=== PATIENT | male | born 1940 | race African-American/Black ===

== ENCOUNTER 2021-12-02 19:37 | Inpatient (IN) | payer MEDICARE, MEDICAID ==
[~2021-12-02] VITALS: Ht 172.7 cm; Wt 95.7 kg
--- NOTE | 2021-12-02 19:46 | NUR ---
JLUIS FROM SNF C/O NAUSEA AND VOMITTING X1DAY. TESTED POSITIVE FOR COVID 19. ON O2 NC 2L VIA N/C . PT AWAKE A/OX2. SAFETY MEASURES IN PLACE. CONNECTED PT TO POX AND MONITOR.
--- NOTE | 2021-12-02 20:15 | NUR ---
LAC #18G S/L BLOOD COLLECTED AND SENT TO LAB
--- NOTE | 2021-12-02 20:16 | NUR ---
INDUSTRIAL MAINTENANCE TECHNICIAN AT PT'S BEDSIDE
[2021-12-02] MEDS ORDERED: ONDANSETRON HCL/PF 4 MG/2 ML VIAL ONE ×2 (20:17→22:03)
--- NOTE | 2021-12-02 20:25 | NUR ---
COVID ANTIGEN SWAB COLLECTED AND SENT TO LAB
[2021-12-02] MEDS: ONDANSETRON HCL/PF 4 MG/2 ML VIAL IVP ONE ×2 (20:26→20:27)
[2021-12-02] MEDS ORDERED: IV NS 0.9% 1,000 ML BAG IV ONE (20:30)
[2021-12-02 20:52] LABS: BASOPHILS % (AUTO) 0.2 % (0.0-2.0); HEMATOCRIT 43 % (39-51); HEMOGLOBIN 14.7 g/dL (13.5-17.5); LYMPHOCYTES # (AUTO) 1.6 K/uL (0.8-4.8); LYMPHOCYTES % (AUTO) 19.9 % (20.0-44.0); MEAN CORPUSCULAR HGB CONC 34 g/dl (31.0-36.0); MEAN CORPUSCULAR VOLUME 83 fL (80-96); MONOCYTES # (AUTO) 1.3 K/uL (0.1-1.30); MONOCYTES % (AUTO) 16.9 % (2.0-12.0); PLATELET COUNT (AUTO) 283 K/uL (150-450); RED BLOOD CELL COUNT(AUTO) 5.19 MIL/uL (4.5-6.0); WHITE BLOOD COUNT (AUTO) 7.9 K/uL (4.3-11.0)
[2021-12-02 20:58] LABS: CALCIUM, SERUM 9.4 mg/dL (8.5-10.1); CHLORIDE 85 mmol/L (98-107); CREATININE 2.4 mg/dL (0.6-1.3); GLUCOSE 153 mg/dL (74-106); POTASSIUM 3.8 mmol/L (3.5-5.1); SODIUM SERUM 129 mmol/L (136-145); UREA NITROGEN, BLOOD 67 mg/dL (7-18)
[2021-12-02 21:04] LABS: ALANINE AMINOTRANSFERASE 21 U/L (12-78); ALBUMIN 3.8 g/dL (3.4-5.0); ALKALINE PHOSPHATASE 67 U/L (46-116); ASPARTATE AMINOTRANSFERASE 22 U/L (15-37); BILIRUBIN,DIRECT 0.1 mg/dL (0.0-0.2); BILIRUBIN,TOTAL 0.4 mg/dL (0.2-1.0); TOTAL PROTEIN, SERUM 7.8 g/dL (6.4-8.2)
[2021-12-02 21:05] LABS: CARBON DIOXIDE 40 mmol/L (21-32)
--- NOTE | 2021-12-02 21:20 | NUR ---
COVID PCR SWAB COLLECTED AND SENT TO LAB
[2021-12-02 21:23] LABS: LYMPHOCYTES % (MANUAL) 20 % (16-48); MONOCYTES % (MANUAL) 15 % (0-11.0); NEUTROPHILS % (MANUAL) 65 (42-76)
[2021-12-02] MEDS ORDERED: HYDR-4076 PO (21:37)
[2021-12-02] MEDS ORDERED: ENAL20TA18 PO (21:37)
[2021-12-02] MEDS ORDERED: TAMS-12 PO (21:37)
[2021-12-02] MEDS ORDERED: OLAN10TA3 PO (21:37)
[2021-12-02] MEDS ORDERED: BIMA2.5D5 EACHEYE (21:37)
[2021-12-02] MEDS ORDERED: METF500S7 PO (21:37)
[2021-12-02] MEDS ORDERED: BRIM5DRO EACHEYE (21:37)
[2021-12-02] MEDS ORDERED: NIFE-34 PO (21:37)
[2021-12-02] MEDS ORDERED: FLUT16SP (21:37)
[2021-12-02] MEDS ORDERED: FINA5TAB11 PO (21:37)
[2021-12-02] MEDS ORDERED: LEVE250T2 PO (21:37)
[2021-12-02] MEDS ORDERED: MULT-447 PO (21:37)
[2021-12-02] MEDS ORDERED: AMAN100T PO (21:37)
[2021-12-02] MEDS ORDERED: ATOR10TA PO (21:37)
[2021-12-02] MEDS ORDERED: CARV25TA2 PO (21:37)
[2021-12-02] MEDS ORDERED: DOCU100C36 PO (21:37)
[2021-12-02] MEDS ORDERED: ONDANSETRON HCL/PF - ER 4 MG/2 ML VIAL IV ONE (22:00)
[2021-12-02] MEDS ORDERED: MISCELLANEOUS MED 1 EA EA XX ONE (22:00)
[2021-12-02] MEDS ORDERED: ONDANSETRON HCL/PF 4 MG/2 ML VIAL IVP ONE (22:00)
--- NOTE | 2021-12-02 22:12 | NUR ---
PT NOTED WITH EMESISX1. ADMINISTERED ZOFRAN 4MG IVP ORDERED FROM MD. WILL REASSESS PT FOR N/V IN 30 MINUTES
[2021-12-02] MEDS ORDERED: METOCLOPRAMIDE HCL 15 MG in IV NS 0.9% 50 ML IV PRN (23:00)
[2021-12-02] MEDS ORDERED: IV D5/ 0.9% NACL 1,000 ML IV ONE (23:00)
[2021-12-02] MEDS ORDERED: MAG HYDROX/AL HYDROX/SIMETH 30 ML UDC PO PRN (23:00)
[2021-12-02] MEDS ORDERED: ZOLPIDEM TARTRATE 5 MG TABLET PO PRN (23:00)
[2021-12-02] MEDS ORDERED: Z GUARD REMEDY 4 OZ OINT TP PRN (23:00)
[2021-12-02] MEDS ORDERED: MAGNESIUM HYDROXIDE 30 ML UDC PO PRN (23:00)
[2021-12-02] MEDS ORDERED: ACETAMINOPHEN 325 MG TABLET PO PRN (23:00)
--- NOTE | 2021-12-02 23:28 | NUR ---
bed 107
--- NOTE | 2021-12-02 23:40 | NUR ---
REPORT GIVEN TO DORIAN PETIT RN FOR ALEX
--- NOTE | 2021-12-02 23:47 | NUR ---
PT NOTED WITH EMESISX1. ADMINISTERED ZOFRAN 4MG IVP ORDERED FROM MD. WILL REASSESS PT FOR N/V IN 30 MINUTES
--- NOTE | 2021-12-02 23:57 | NUR ---
PT TRANSFERRING TO [facility]IA [facility] PROTOCOL. ALL BELONGINGS WITH PT. LAC #18G S/L INTACT. ON O2 4LPM VIA N/C. VSS.
--- NOTE | 2021-12-03 | NUR ---
RN NOTES; PT RECEIVED FROM ER IN RM 107 AAOX3 ABLE TO VERBALIZE NEEDS.ON O2 @ 4L VIA NC SHAHBAZ WELL.NO SIGN SOB/DISTRESS NOTED.NO COMPLAINE OF PAIN/DISCOMFORT AT THIS TIME.IV ACCESS ON LAC 18G PATENT AND INTACT.PT WAS REORIENT IN THE RM AND VERBALIZE UNDERSTANDING.SAFETY MEASURED INPLACE.BED LOCKED AND LOW POSITION.CALL LIGHT WITHIN REACH.WILL CONTINUE TO MONITOR.
[2021-12-03] MEDS: ONDANSETRON HCL/PF 4 MG/2 ML VIAL IVP PRN ×2 (03:19→09:52)
--- NOTE | 2021-12-03 06:24 | NUR ---
RN CLOSING NOTES; PT IN BED SLEEPING BUT EASY TO AROUSED.AOX3 ABLE TO VERBALIZE NEEDS.ON O2 @ 4L VIA NC SHAHBAZ WELL.NO SIGN SOB/DISTRESS NOTED.NO COMPLAINE OF PAIN/DISCOMFORT DURING SHIFT.DUE MEDS GIVEN ORDERED.ALL NEEDS ATTENDED..IV ACCESS ON LAC 18G PATENT AND INTACT RUNNING D5NS @100CC/HR SHAHBAZ WELL.SAFETY MEASURED INPLACE.BED LOCKED AND LOW POSITION.CALL LIGHT WITHIN REACH.WILL ENDORSED TO NEXT SHIT.
--- NOTE | 2021-12-03 06:25 | NUR ---
RN NOTES; PT DVT SCORE WAS 3.I TEXTED ONIEL LAWSON S.WITH A NEW ORDERED HEPARIN 5000 SQ Q12HR .
[2021-12-03] MEDS ORDERED: METOCLOPRAMIDE HCL 10 MG/2 ML VIAL IV PRN (06:30)
[2021-12-03 06:38] LABS: BASOPHILS % (AUTO) 0.2 % (0.0-2.0); EOSINOPHILS % (AUTO) 0.1 % (0.0-6.0); HEMATOCRIT 42 % (39-51); LYMPHOCYTES # (AUTO) 1.1 K/uL (0.8-4.8); LYMPHOCYTES % (AUTO) 19.9 % (20.0-44.0); MEAN CORPUSCULAR HGB CONC 33 g/dl (31.0-36.0); MEAN CORPUSCULAR VOLUME 83 fL (80-96); MONOCYTES # (AUTO) 1.1 K/uL (0.1-1.30); MONOCYTES % (AUTO) 19.3 % (2.0-12.0); NEUTROPHILS # (AUTO) 3.5 K/uL (1.8-8.9); NEUTROPHILS % (AUTO) 60.5 % (43.0-81.0); PLATELET COUNT (AUTO) 246 K/uL (150-450); RED BLOOD CELL COUNT(AUTO) 5.08 MIL/uL (4.5-6.0); WHITE BLOOD COUNT (AUTO) 5.8 K/uL (4.3-11.0)
[2021-12-03 07:10] LABS: CALCIUM, SERUM 8.7 mg/dL (8.5-10.1); CARBON DIOXIDE 38 mmol/L (21-32); CHLORIDE 86 mmol/L (98-107); CREATININE 2.3 mg/dL (0.6-1.3); GLUCOSE 175 mg/dL (74-106); MAGNESIUM 2.3 mg/dL (1.8-2.4); PHOSPHORUS 6.4 mg/dL (2.5-4.9); POTASSIUM 3.3 mmol/L (3.5-5.1); SODIUM SERUM 131 mmol/L (136-145); UREA NITROGEN, BLOOD 73 mg/dL (7-18)
--- NOTE | 2021-12-03 07:30 | NUR ---
OPENING NOTES: RECEIVED PATIENT IN BED, AWAKE, ALERT AND ORIENTED X 2. BREATHING EVEN AND UNLABORED. ON OXYGEN AT 4L/MIN VIA NC SATING 95%. HAS IV ACCESS ON LEFT AC # 18 RUNNING WITH D5NS AT 100 ML/HR. PATIENT REMAINS ON NPO UNTIL FURTHER ORDERS FROM MD. HOB KEPT ELEVATED. BED LOCKED AND IN LOWEST POSITION. PATIENT NOTED TO HAVE MINIMAL GREEN EMESIS ON HIS BED. WILL GIVE PRN MED ORDERED FOR N/V. KEPT PATIENT CLEAN AND DRY AND WILL MONITOR FOR FURTHER EPISODES OF VOMITING AND WILL NOTIFY MD NEEDED. WILL IMPLEMENT SAFETY MEASURES THROUGHOUT SHIFT.
--- NOTE | 2021-12-03 07:35 | NUR ---
MEDICATION ZOFRAN NOT SCHEDULED YET AND WILL GIVE MED ORDERED
[2021-12-03 08:00] VITALS: BP 106/69
[2021-12-03] MEDS ORDERED: BISA10SU11 RC (08:38)
[2021-12-03] MEDS ORDERED: GUAI100S11 PO (08:38)
[2021-12-03] MEDS ORDERED: NA P133E RC (08:38)
[2021-12-03] MEDS ORDERED: LACT10SO3 PO (08:38)
[2021-12-03 08:45] LABS: BAND % (MANUAL) 2 % (0.0-5.0); LYMPHOCYTES % (MANUAL) 24 % (16-48); MONOCYTES % (MANUAL) 17 % (0-11.0); NEUTROPHILS % (MANUAL) 57 (42-76)
[2021-12-03] MEDS: PANTOPRAZOLE 40 MG VIAL IV SCH (09:50)
[2021-12-03] MEDS: HEPARIN SODIUM, PORCINE 5000 UNITS/1 ML VIAL SQ SCH ×2 (09:51→21:03)
[2021-12-03] MEDS ORDERED: POTASSIUM CL. PREMIX PERIPHER. 50 ML IV SCH (12:00)
--- NOTE | 2021-12-03 13:09 | NUR ---
CALLED LAB EXT [phone], SPOKE WITH BROOK AND INFORMED THAT URINE SPECIMEN WAS COLLECTED AND IS READY TO BE PICKED UP FOR THE PATIENT. SPECIMEN PLACED IN THE REFRIGERATOR PREVIOUSLY.
[2021-12-03 13:58] LABS: BILIRUBIN,URINE NEGATIVE (NEGATIVE); COLOR,URINE YELLOW (YELLOW); LEUKOCYTE ESTERASE ,URINE NEGATIVE (NEGATIVE); NITRITE, URINE NEGATIVE (NEGATIVE); PH,URINE 5.5 (5.0-8.0); PROTEIN,URINE NEGATIVE (NEGATIVE); UGLUCOSE NEGATIVE (NEGATIVE); UROBILINOGEN,URINE 0.2 EU/dL (0.2)
[2021-12-03 14:16] LABS: CREATININE, URINE 136.5 MG/DL (30.0-125.0)
[2021-12-03 15:42] LABS: ABG OXYGEN SATURATION 94.9 % (92.0-98.5); ABG PCO2 49.5 mmHg (35.0-45.0); ABG PH 7.505 (7.350-7.450); ABG PO2 76.5 mmHg (75.0-100.0); AaDO2 122.8 mmHg; COHb 0.7 % (0.5-1.5); MetHb 0.6 % (0.0-1.5); O2Hb 93.7 % (94.0-97.0); SITE, ABG Right Radial; VENT MODE, BG 36% NC
[2021-12-03 16:00] VITALS: BP 127/75
--- NOTE | 2021-12-03 18:41 | NUR ---
RN CLOSING NOTES: PATIENT IN BED ASLEEP BUT EASILY AROUSES TO VOICE. ON OXYGEN @ 4L/MIN VIA N/C WITH OXYGEN SATURATION OF 99. NO SOB NOTED, BREATHING EVEN AND UNLABORED. PATIENT DID NOT EXHIBIT ANY S/S OF ASPIRATION SINCE STARTED ON CLEAR LIQUID DIET. TOLERATING PO FLUIDS WELL. SALINE LOCK ON LEFT AC, INTACT, PATENT AND FLUSHING WELL, NO S/S OF INFILTRATION. PATIENT USED URINAL THROUGHOUT SHIFT AND VOIDED 825 ML OF CLEAR YELLOW URINE. NO MORE NAUSEA AND VOMITING NOTED EVER SINCE THE FIRST EPISODE AT 0952. HOB ELEVATED, BED LOCKED AND IN LOWEST POSITION, SR UP X 2, CALL LIGHT WITHIN REACH. WILL ENDORSE TO NEXT SHIFT NURSE FOR CONTINUITY OF CARE.
--- NOTE | 2021-12-03 19:40 | NUR ---
MS RN OPENING NOTES RECEIVED PATIENT IN BED, AWAKE, ALERT AND ORIENTED X 3. BREATHING EVEN AND UNLABORED. ON OXYGEN AT 4L/MIN VIA NC SATING 95%. NO COMPLAINTS OF PAIN AT THIS TIME, HAS IV ACCESS ON LEFT AC # 18 INTACT, PATENT, AND FLUSHES WELL. HOB KEPT ELEVATED. BED LOCKED AND IN LOWEST POSITION. CALL LIGHT WITHIN REACH, MAINTAINED ASPIRATION PRECAUTION, WILL MONITOR CLOSELY THROUGHOUT THE SHIFT.
--- NOTE | 2021-12-03 23:00 | NUR ---
RN NOTE NOTED PT IV ACCESS ON LAC DISLODGED AT BEDSIDE. WILL ATTEMPT TO INSERT NEW IV LINE.
[2021-12-04] VITALS: BP 123/71
[2021-12-04] MEDS: ONDANSETRON HCL/PF 4 MG/2 ML VIAL IVP PRN (01:07)
--- NOTE | 2021-12-04 01:10 | NUR ---
RN NOTE NEW IV ACCESS OBTAINED ON L WRIST #22G, INTACT, PATENT, AND FLUSHES WELL. PATIENT IS HARDSTICK, 2 ATTEMPTS DONE BEFORE SUCCESSFUL INSERTION. NOTED WITH 400 CC OF EMESIS OUTPUT, ADMINISTERED PRN MEDS FOR N &V.
--- NOTE | 2021-12-04 05:10 | NUR ---
RN NOTE PATIENT TOOK OFF HIS IV LINE ON L WRIST. ATTEMPTED TO RE-INSERT NEW ACCESS, PT REFUSED SAYING "I DON'T WANNA BE POKED AGAIN, LEAVE ME ALONE". INFORMED CHEF TEACHER DOC, NO IV ACCESS AT THIS TIME. CN MADE AWARE.
--- NOTE | 2021-12-04 06:47 | NUR ---
RN NOTE PATIENT REMAINS ON BED, AWAITING FOR MIDLINE INSERTION, ENDORSED TO AM SHIFT NURSE.
[2021-12-04 06:59] LABS: CALCIUM, SERUM 7.9 mg/dL (8.5-10.1); CREATININE 1.3 mg/dL (0.6-1.3); POTASSIUM 3.9 mmol/L (3.5-5.1)
--- NOTE | 2021-12-04 07:21 | NUR ---
MS RN OPENING NOTES RECEIVED PATIENT IN BED, AWAKE, ALERT AND ORIENTED X 3. BREATHING EVEN AND UNLABORED. ON OXYGEN AT 4L/MIN VIA NC SATING 95%. NO COMPLAINTS OF PAIN AT THIS TIME, NO IV ACCESS AWAITING FOR MIDLINE INSERTION. HOB KEPT ELEVATED. BED LOCKED AND IN LOWEST POSITION. CALL LIGHT WITHIN REACH, MAINTAINED ASPIRATION PRECAUTION, WILL MONITOR CLOSELY
[2021-12-04 08:00] VITALS: BP 127/71
[2021-12-04] MEDS: PANTOPRAZOLE 40 MG VIAL IV SCH (09:00)
[2021-12-04] MEDS: HEPARIN SODIUM, PORCINE 5000 UNITS/1 ML VIAL SQ SCH ×2 (09:31→21:11)
--- NOTE | 2021-12-04 09:56 | NUR ---
RN notes: pt does not have IV access refused to insert peripheral saline lock, unable to administer protonix, awaiting for midline insertion
--- NOTE | 2021-12-04 12:00 | NUR ---
RN notes: midline inserted to right upper arm well tolerated.
--- NOTE | 2021-12-04 12:50 | NUR ---
rn notes: pt pulled out his midline does not want to say why
[2021-12-04 15:28] LABS: CALCIUM, SERUM 8.2 mg/dL (8.5-10.1); CREATININE 1.3 mg/dL (0.6-1.3); POTASSIUM 3.2 mmol/L (3.5-5.1)
[2021-12-04 16:00] VITALS: BP 112/69
[2021-12-04] MEDS: IV D5/ 0.9% NACL 1,000 ML IV PRN (16:42)
--- NOTE | 2021-12-04 19:13 | NUR ---
RN CLOSING NOTES: PATIENT IN BED AWAKE. A/O 2-3 ON OXYGEN @ 4L/MIN VIA N/C WITH OXYGEN SATURATION OF 96. NO SOB NOTED, BREATHING EVEN AND UNLABORED. PATIENT DID NOT EXHIBIT ANY S/S OF ASPIRATION SINCE STARTED ON CLEAR LIQUID DIET. TOLERATING PO FLUIDS WELL. SALINE LOCK ON LEFT AC, INTACT, PATENT AND FLUSHING WELL, NO S/S OF INFILTRATION. PATIENT USED URINAL AND VOIDED IN BED. NO MORE NAUSEA AND VOMITING NOTED THE WHOLE SHIFT. BILATERAL SOFT RESTRAINT IN PLACE CIRCULATION AND SKIN CHECKED WITHOUT ANY COMPLICATION. HOB ELEVATED, BED LOCKED AND IN LOWEST POSITION, SR UP X 2, CALL LIGHT WITHIN REACH. WILL ENDORSE TO NEXT SHIFT NURSE FOR CONTINUITY OF CARE.
--- NOTE | 2021-12-04 19:30 | NUR ---
RN OPENING NOTES: RECEIVED PATIENT IN BED AWAKE. A/O 2-3 AND VERBALLY RESPONSIVE. ON O2 @ 4L/MIN VIA N/C AND PT TOLERATED WELL. BREATHING EVEN AND UNLABORED. IV ACCESS ON RT HAND#22G INTACT AND PATENT. NO S/S OF INFILTRATIONS. RUNNING D5NS AT 75CC/HR. BILATERAL SOFT RESTRAINT IN PLACE.HOB ELEVATED. ON ISOLATION PRECAUTION FOR COVID POSITIVE. ALL SAFETY MEASURES IN PLACE. BED IN LOWEST POSITION AND LOCKED, SR UP X 3, PLACE CALL LIGHT WITHIN REACH. WILL CONTINUE TO MONITOR.
[2021-12-04 20:00] VITALS: BP 146/85
[2021-12-05 04:00] VITALS: BP 144/73
[2021-12-05 06:10] LABS: BASOPHILS % (AUTO) 0.2 % (0.0-2.0); EOSINOPHILS % (AUTO) 1.2 % (0.0-6.0); HEMATOCRIT 36 % (39-51); LYMPHOCYTES % (AUTO) 28.4 % (20.0-44.0); MEAN CORPUSCULAR HGB CONC 34 g/dl (31.0-36.0); MEAN CORPUSCULAR VOLUME 83 fL (80-96); MONOCYTES # (AUTO) 0.9 K/uL (0.1-1.30); MONOCYTES % (AUTO) 13.5 % (2.0-12.0); NEUTROPHILS # (AUTO) 3.9 K/uL (1.8-8.9); NEUTROPHILS % (AUTO) 56.7 % (43.0-81.0); PLATELET COUNT (AUTO) 239 K/uL (150-450)
[2021-12-05] MEDS: IV D5/ 0.9% NACL 1,000 ML IV PRN ×2 (06:22→18:28)
--- NOTE | 2021-12-05 06:30 | NUR ---
RN CLOSING NOTES: PATIENT IN BED AWAKE. A/O 2-3 AND VERBALLY RESPONSIVE. ON O2 @ 4L/MIN VIA N/C AND PT TOLERATED WELL. O2 SAT 100%. BREATHING EVEN AND UNLABORED. IV ACCESS ON RT HAND#22G INTACT AND PATENT. NO S/S OF INFILTRATIONS. RUNNING D5NS AT 75CC/HR. BILATERAL SOFT RESTRAINT IN PLACE. RELEASED Q 2 HOURS TO CHECK CIRCULATION. HOB ELEVATED. DUE MEDS GIVEN ORDERED. ON ISOLATION PRECAUTION FOR COVID POSITIVE. ALL SAFETY MEASURES IN PLACE. BED IN LOWEST POSITION AND LOCKED, SR UP X 3, PLACE CALL LIGHT WITHIN REACH. WILL ENDORSE TO MORNING SHIFT NURSE.
[2021-12-05 07:06] LABS: CALCIUM, SERUM 7.8 mg/dL (8.5-10.1); CARBON DIOXIDE 35 mmol/L (21-32); CHLORIDE 99 mmol/L (98-107); CREATININE 1.1 mg/dL (0.6-1.3); GLUCOSE 131 mg/dL (74-106); POTASSIUM 3.3 mmol/L (3.5-5.1); SODIUM SERUM 138 mmol/L (136-145); UREA NITROGEN, BLOOD 21 mg/dL (7-18)
--- NOTE | 2021-12-05 07:10 | NUR ---
MS RN OPENING NOTE: RECEIVED PT. IN BED, A/O X 3-4, ABLE TO MAKE NEEDS KNOWN. NO COMPLAINTS OF PAIN AT THIS TIME. PATIENT ON 4L NC, NO S/S OF RESPIRATORY DISTRESS. IV ACCESS ON R HAND #22 WITH D5 NS RUNNING @ 75 ML/HR. IV DRESSING C/D/I WITH NO S/S OF INFILTRATION. PT. ON BILATERAL SOFT WRIST RESTRAINTS HE IS REMOVING HIS IV TUBING IN SPITE OF EDUCATION ON RISKS/BENEFITS, DISTRACTION AND LESS RESTRICTIVE MEASURES. SKIN INTACT. SAFETY MEASURES IN PLACE: BED LOCKED AND IN LOWEST POSITION, CALL LIGHT WITHIN REACH, BED ALARM ON, SIDE RAILS UP x2, HOB ELEVATED. WILL CONTINUE TO MONITOR PT. FOR ANY CHANGES.
[2021-12-05 08:00] VITALS: BP 133/80
[2021-12-05] MEDS: PANTOPRAZOLE 40 MG VIAL IV SCH (09:50)
[2021-12-05] MEDS: HEPARIN SODIUM, PORCINE 5000 UNITS/1 ML VIAL SQ SCH ×2 (09:51→21:58)
[2021-12-05] MEDS ORDERED: POTASSIUM CHLORIDE 20 MEQ TAB.PRT.SR PO SCH (11:00)
[2021-12-05 16:00] VITALS: BP 155/87
--- NOTE | 2021-12-05 19:00 | NUR ---
RN NOTE RECEIVED PATIENT IN BED, AO X 3-4, IN NO ACUTE DISTRESS, BREATHING EVEN AND UNLABORED, SATURATION AT 94% ON ROOM AIR, HR IS 68. IV LINE AT R HAND 22G PATENT AND FLUSHING WELL, NO S/S OF INFECTION OR INFILTRATION WITH D5NS INFUSING AT 75 ML/HR. ISOLATION PRECAUTIONS MAINTAINED. SAFETY MEASURES IMPLEMENTED. PATIENT BED ALARM IS ON. HEAD OF BED ELEVATED. BED IS LOCKED, IN LOWEST POSITION AND SIDE RAILS UP. CALL LIGHT WITHIN REACH OF THE PATIENT. WILL CONTINUE TO MONITOR AND REASSESS FOR ANY CHANGES.
--- NOTE | 2021-12-05 19:05 | NUR ---
MS RN CLOSING NOTE: PT. REMAINS IN BED, A/O X 3-4, ABLE TO VERBALIZE NEEDS. NO COMPLAINTS OF PAIN AT THIS TIME. PATIENT ON RA, BREATHING EVEN AND UNLABORED. IV ACCESS REMAINS ON R HAND #22 WITH D5 NS RUNNING @ 75 ML/HR. IV DRESSING C/D/I WITH NO S/S OF INFILTRATION. REMOVED SOFT BILATERAL WRIST RESTRAINTS, PT. HAS BEEN COOPERATIVE AND STOPPED PULLING HIS LINES. SKIN INTACT. SAFETY MEASURES MAINTAINED: BED LOCKED AND IN LOWEST POSITION, CALL LIGHT WITHIN REACH, BED ALARM ON, SIDE RAILS UP x2, HOB ELEVATED. WILL ENDORSE CONTINUITY OF CARE TO DIRECTOR PHARMACEUTICAL RN.
[2021-12-05 20:00] VITALS: BP 138/81
[2021-12-06 00:44] VITALS: BP 138/81
[2021-12-06 04:00] VITALS: BP 154/95
--- NOTE | 2021-12-06 05:35 | NUR ---
RN NOTE PATIENT REFUSED BLOOD DRAW. EXPLAINED IMPORTANCE OF LAB TESTS. PT STILL REFUSED. LAB WILL TRY AGAIN LATER. ENDORSED TO OMAR BULLOCK
--- NOTE | 2021-12-06 07:36 | NUR ---
RN OPENING NOTE PATIENT RECEIVED IN BED, AO X 3-4, ABLE TO RESPONDS ALL STIMULI. IN NO ACUTE DISTRESS NOTED. RESPIRATORY EVEN AND UNLABORED ON ROOM AIR. SKIN IS WARM TO TOUCH, KEEP CLEAN/DRY. KEPT ELEVATED HOB FOR ENSURE AIRWAY AND ASPIRATION PRECAUTION, ALSO LOWEST POSITION OF THE BED, S/R UP X 2, BED ALARM IS ON AT ALL THE TIMES. ALL SAFETY PRECAUTION APPLIED. CALL LIGHT WITHIN REACH, WILL CONTINUE TO MONITOR.
[2021-12-06 08:00] VITALS: BP 165/90
[2021-12-06] MEDS: PANTOPRAZOLE 40 MG VIAL IV SCH (08:38)
[2021-12-06] MEDS: HEPARIN SODIUM, PORCINE 5000 UNITS/1 ML VIAL SQ SCH ×2 (08:42→20:20)
[2021-12-06] MEDS: IV D5/ 0.9% NACL 1,000 ML IV PRN (15:13)
--- NOTE | 2021-12-06 15:45 | NUR ---
patient refused blood draw tried 3x already ,shona tabares notified .
--- NOTE | 2021-12-06 17:03 | NUR ---
Patient noticed combative and agitated, refused take vital signed. New order Ativan 1mg Iv x 1. noted and carry out.
[2021-12-06] MEDS ORDERED: LORAZEPAM INJ 2 MG/ML VIAL IV ONE (17:30)
--- NOTE | 2021-12-06 18:38 | NUR ---
RN CLOSING NOTE PATIENT IN BED RESTING. IN NO ACUTE DISTRESS NOTED. RESPIRATORY EVEN AND UNLABORED ON ROOM AIR. PATIENT NOTICED COMBATIVE AND AGITATE BEHAVIOR, GIVEN ATIVAN 1MG IV X 1. SKIN IS WARM TO TOUCH, KEEP CLEAN/DRY, INTACT NEW IV LINE THAT PATIENT PULLED OUT OLD IV LINE. KEPT ELEVATED HOB FOR ENSURE AIRWAY AND ASPIRATION PRECAUTION. BED IN LOWEST POSITION AND LOCKED. BED ALARM IS ON AT ALL THE TIMES. ALL SAFETY MEASURED IN PLACED. CALL LIGHT WITHIN REACH, WILL ENDORSED TO NEXT SHIFT.
--- NOTE | 2021-12-06 19:00 | NUR ---
RN NOTE RECEIVED PATIENT IN BED, AO X 3-4, IN NO ACUTE DISTRESS, BREATHING EVEN AND UNLABORED, SATURATION AT 98% ON ROOM AIR, HR IS 60. IV LINE AT LFA 22G PATENT AND FLUSHING WELL, NO S/S OF INFECTION OR INFILTRATION WITH D5NS INFUSING AT 75 ML/HR. ISOLATION PRECAUTIONS MAINTAINED. SAFETY MEASURES IMPLEMENTED. PATIENT BED ALARM IS ON. HEAD OF BED ELEVATED. BED IS LOCKED, IN LOWEST POSITION AND SIDE RAILS UP. CALL LIGHT WITHIN REACH OF THE PATIENT. WILL CONTINUE TO MONITOR AND REASSESS FOR ANY CHANGES.
[2021-12-06 20:00] VITALS: BP 126/84
[2021-12-07] VITALS: BP 126/84
--- NOTE | 2021-12-07 07:49 | NUR ---
RN OPEN NOTE PATIENT RECEIVED IN BED SLEEPING AO X 3-4, ABLE TO RESPONDS ALL STIMULI.ON ROOM AIR , TOLERATING WELL IN NO ACUTE DISTRESS NOTED. RESPIRATORY EVEN AND UNLABORED SKIN IS INTACT. PATIENT IS AMBULATORY WITH ASSISTANCE , ON CLEAR LIQUID DIET ,PATIENT HAS IV ACCESS ON RFA 22 G WITH D5 NS RUNNING AT 75 ML/HR KEPT ELEVATED HOB FOR ENSURE AIRWAY AND ASPIRATION PRECAUTION, ALSO LOWEST POSITION OF THE BED, S/R UP X 2, BED ALARM IS ON AT ALL THE TIMES. ALL SAFETY PRECAUTION APPLIED. CALL LIGHT WITHIN REACH, WILL CONTINUE TO MONITOR.
[2021-12-07 08:00] VITALS: BP 110/74
[2021-12-07] MEDS: PANTOPRAZOLE 40 MG TABLET.DR PO SCH (08:25)
[2021-12-07] MEDS: HEPARIN SODIUM, PORCINE 5000 UNITS/1 ML VIAL SQ SCH ×2 (08:26→22:29)
[2021-12-07] MEDS: IV D5/ 0.9% NACL 1,000 ML IV PRN (10:13)
[2021-12-07 16:00] VITALS: BP 146/73
--- NOTE | 2021-12-07 18:26 | NUR ---
RN NOTE PATIENT RECEIVED IN BED AO X 3-4, ABLE TO RESPONDS ALL STIMULI.ON ROOM AIR , TOLERATING WELL IN NO ACUTE DISTRESS NOTED. RESPIRATORY EVEN AND UNLABORED SKIN IS INTACT. PATIENT IS AMBULATORY WITH ASSISTANCE , ON FULL LIQUID DIET ,PATIENT HAS IV ACCESS ON RFA 22 G WITH D5 1/2 NS RUNNING AT 75 ML/HR KEPT ELEVATED HOB FOR ENSURE AIRWAY AND ASPIRATION PRECAUTION, ALSO LOWEST POSITION OF THE BED, S/R UP X 2, BED ALARM IS ON AT ALL THE TIMES. ALL SAFETY PRECAUTION APPLIED. CALL LIGHT WITHIN REACH
--- NOTE | 2021-12-07 19:10 | NUR ---
RN NOTE RECEIVED PATIENT IN BED, AO X 3-4, IN NO ACUTE DISTRESS, BREATHING EVEN AND UNLABORED, SATURATION AT 95% ON ROOM AIR, HR IS 58. IV LINE AT RFA 22G PATENT AND FLUSHING WELL, NO S/S OF INFECTION OR INFILTRATION WITH D5NS INFUSING AT 75 ML/HR. ISOLATION PRECAUTIONS MAINTAINED. SAFETY MEASURES IMPLEMENTED. PATIENT BED ALARM IS ON. HEAD OF BED ELEVATED. BED IS LOCKED, IN LOWEST POSITION AND SIDE RAILS UP. CALL LIGHT WITHIN REACH OF THE PATIENT. WILL CONTINUE TO MONITOR AND REASSESS FOR ANY CHANGES.
[2021-12-07 20:00] VITALS: BP 137/73
--- NOTE | 2021-12-07 22:40 | NUR ---
RN NOTE NOTED IV LINE AT RFA 22G PULLED OUT. PT REFUSED IV LINE INSERTION STATING "I DON'T NEED IT". PT NOW ON CARDIAC DIET, CLEARED FOR DC BY [facility] BUT IS PENDING PLACEMENT TO SNF. TRANSITIONAL CARE LIAISON WAS NOTIFIED, AND ACKNOWLEDGED.
[2021-12-08 01:54] VITALS: BP 137/73
--- NOTE | 2021-12-08 07:10 | NUR ---
RN OPENING NOTE PATIENT RECEIVED IN BED, AO X 3-4, ABLE TO RESPONDS ALL STIMULI. IN NO ACUTE DISTRESS NOTED.PATIENT IS ON ROOM AIR , BREATHING EVEN AND UNLABORED SKIN IS WARM TO TOUCH, KEEP CLEAN/DRY. KEPT ELEVATED HOB FOR ENSURE AIRWAY AND ASPIRATION PRECAUTION. PATIENT HAS NO IV ACCESS ,REMOVED IT AT THORACIC MEDICINE SPECIALIST .BED IS AT LOWEST POSITION SIDE RAILS ARE UP X 2, BED ALARM IS ON AT ALL THE TIMES. ALL SAFETY PRECAUTION APPLIED. CALL LIGHT WITHIN REACH, WILL CONTINUE TO MONITOR.
[2021-12-08] MEDS: PANTOPRAZOLE 40 MG TABLET.DR PO SCH ×2 (07:45→08:25)
[2021-12-08 08:00] VITALS: BP 157/84
[2021-12-08] MEDS: HEPARIN SODIUM, PORCINE 5000 UNITS/1 ML VIAL SQ SCH (08:28)
[2021-12-08 09:32] LABS: BASOPHILS % (AUTO) 0.1 % (0.0-2.0); HEMATOCRIT 36 % (39-51); HEMOGLOBIN 12.3 g/dL (13.5-17.5); LYMPHOCYTES # (AUTO) 1.7 K/uL (0.8-4.8); LYMPHOCYTES % (AUTO) 19.1 % (20.0-44.0); MEAN CORPUSCULAR HGB CONC 34 g/dl (31.0-36.0); MEAN CORPUSCULAR VOLUME 84 fL (80-96); MONOCYTES # (AUTO) 0.7 K/uL (0.1-1.30); MONOCYTES % (AUTO) 8.6 % (2.0-12.0); NEUTROPHILS # (AUTO) 6.2 K/uL (1.8-8.9); NEUTROPHILS % (AUTO) 71.2 % (43.0-81.0); PLATELET COUNT (AUTO) 219 K/uL (150-450); RED BLOOD CELL COUNT(AUTO) 4.34 MIL/uL (4.5-6.0); WHITE BLOOD COUNT (AUTO) 8.7 K/uL (4.3-11.0)
[2021-12-08 09:56] LABS: CALCIUM, SERUM 7.8 mg/dL (8.5-10.1); MAGNESIUM 2.1 mg/dL (1.8-2.4); PHOSPHORUS 1.2 mg/dL (2.5-4.9); POTASSIUM 3.4 mmol/L (3.5-5.1)
--- NOTE | 2021-12-08 11:39 | NUR ---
patient is at stable health condition , order received to to discharge patient from the [facility] and transfer to the [facility] . Report was given to the KOBE Baldwin and to the EMT . Patient discharged from the [facility]
== END 2021-12-08 10:22 | DRG 137 ==
LOC: ER 19:40 → MEDSG1 23:40
PROVIDERS: ADMIT Student in an Organized Health Care Education/Training Program; ATTEND Nurse Practitioner Acute Care
PROC: 05H933Z Insertion of Infusion Device into Right Brachial Vein, Percutaneous Approach (ICD-10-PCS; principal; 2021-12-04)
DX: U07.1 COVID-19 (principal); N17.0 Acute kidney failure with tubular necrosis; J96.01 Acute respiratory failure with hypoxia; J96.02 Acute respiratory failure with hypercapnia; E78.5 Hyperlipidemia, unspecified; I10 Essential (primary) hypertension; K21.9 Gastro-esophageal reflux disease without esophagitis; E11.9 Type 2 diabetes mellitus without complications; F20.9 Schizophrenia, unspecified; Z88.8 Allergy status to other drugs, medicaments and biological substances; Z91.014 Allergy to mammalian meats; Z79.84 Long term (current) use of oral hypoglycemic drugs; Z79.899 Other long term (current) drug therapy; E87.1 Hypo-osmolality and hyponatremia; E86.1 Hypovolemia; E86.0 Dehydration; E66.2 Morbid (severe) obesity with alveolar hypoventilation; Z68.32 Body mass index [BMI] 32.0-32.9, adult; E87.3 Alkalosis; E87.6 Hypokalemia
CPT/HCPCS: 36415; 36600; 71045-TC; 74018; 76770-TC; 80048-TC; 80076-TC; 82533; 82570-TC; 82803-TC; 83690-TC; 83735-TC; 84100-TC; 84300-TC; 84443-TC; 85025-TC; 85378-TC; 86140-TC; 87081-TC; 87086-TC; 94799-TC; C9113; C9803; G0378; J1644; J2060; J2405; J2765; J3480; J7030; J7042; J7050; U0003

== ENCOUNTER → 2022-04-08 | Emergency (ER) | payer MEDICARE, OTHER ==
[~2022-04-08] VITALS: Ht 175.3 cm; Wt 92.5 kg
[~2022-04-08] MED LIST: ACET-868 PO; ALBUTEROL FS 2.5 MG/3 ML VIAL.NEB NEB ONE; AMAN100T PO; ATOR10TA PO; BIMA2.5D5 EACHEYE; BISA10SU11 RC; BRIM5DRO EACHEYE; CARV25TA2 PO; DOCU100C36 PO; ENAL20TA18 PO; FINA5TAB11 PO; FLUT16SP; GUAI100S11 PO; HYDR-4076 PO; IPRATROPIUM NEB FS 0.5 MG/2.5 ML AMPUL.NEB NEB ONE; LACT10SO3 PO; LEVE250T2 PO; MAG30ORA PO; MAGN400O6 PO; METF-440 PO; METF500S7 PO; MORPHINE SULFATE INJ 2 MG/ML DISP.SYRIN IV ONE; MULT-447 PO; NA P133E RC; NIFE-34 PO; OLAN10TA3 PO; ONDANSETRON HCL/PF 4 MG/2 ML VIAL IV ONE; PANT40TA2 PO; PIPERACILLIN /TAZOBACTAM 3.375 G in IV D5W 50 ML IV ONE; TAMS-12 PO
--- NOTE | 2022-04-08 13:35 | NUR ---
BIBPA [facility] SNF FOR ABD DISTENTION x 2 DAYS, SOB, ABD PAIN 10/10PS PLACED ON 2LPM NC
[2022-04-08 14:00] VITALS: BP 106/60
--- NOTE | 2022-04-08 14:01 | NUR ---
PT TAKEN TO RADIOLOGY FOR CT
--- NOTE | 2022-04-08 14:09 | NUR ---
PT RETURNED FROM RADIOLOGY
--- NOTE | 2022-04-08 14:21 | NUR ---
established iv line LAC 20g
--- NOTE | 2022-04-08 14:41 | NUR ---
initiated compression
--- NOTE | 2022-04-08 14:41 | NUR ---
event witness at onset , RN EMT RT present . code blue activated
--- NOTE | 2022-04-08 14:43 | NUR ---
rhythm PEA - 1st epi given, pulse check every 2 min initiated
--- NOTE | 2022-04-08 14:48 | NUR ---
intubation performed by dr. carina davis
[2022-04-08 14:59] LABS: BASOPHILS % (AUTO) 0.5 % (0.0-2.0); EOSINOPHILS % (AUTO) 0.2 % (0.0-6.0); HEMATOCRIT 39 % (39-51); HEMOGLOBIN 12.9 g/dL (13.5-17.5); LYMPHOCYTES # (AUTO) 0.5 K/uL (0.8-4.8); LYMPHOCYTES % (AUTO) 6.2 % (20.0-44.0); MEAN CORPUSCULAR HGB CONC 33 g/dl (31.0-36.0); MEAN CORPUSCULAR VOLUME 80 fL (80-96); MONOCYTES # (AUTO) 0.7 K/uL (0.1-1.30); MONOCYTES % (AUTO) 9.3 % (2.0-12.0); NEUTROPHILS # (AUTO) 6.5 K/uL (1.8-8.9); NEUTROPHILS % (AUTO) 83.8 % (43.0-81.0); PLATELET COUNT (AUTO) 239 K/uL (150-450); RED BLOOD CELL COUNT(AUTO) 4.91 MIL/uL (4.5-6.0); WHITE BLOOD COUNT (AUTO) 7.7 K/uL (4.3-11.0)
--- NOTE | 2022-04-08 15:01 | NUR ---
TIME OF - code called by dr. carina davis
--- NOTE | 2022-04-08 15:01 | NUR ---
TIME OF PRONOUNCED BY DR. ULRICH AT 1501.
--- NOTE | 2022-04-08 15:13 | NUR ---
CALLED [facility]. NO ANSWER LEFT VM.
[2022-04-08 15:20] LABS: ALANINE AMINOTRANSFERASE 143 U/L (12-78); ALBUMIN 3.3 g/dL (3.4-5.0); ALKALINE PHOSPHATASE 67 U/L (46-116); ASPARTATE AMINOTRANSFERASE 202 U/L (15-37); BILIRUBIN,DIRECT 0.3 mg/dL (0.0-0.2); BILIRUBIN,TOTAL 0.5 mg/dL (0.2-1.0); CALCIUM, SERUM 9.1 mg/dL (8.5-10.1); CARBON DIOXIDE 21 mmol/L (21-32); CHLORIDE 92 mmol/L (98-107); GLUCOSE 156 mg/dL (74-106); LIPASE 131 U/L (73-393); POTASSIUM 5.1 mmol/L (3.5-5.1); SODIUM SERUM 128 mmol/L (136-145); TOTAL PROTEIN, SERUM 8.3 g/dL (6.4-8.2)
--- NOTE | 2022-04-08 15:20 | NUR ---
NOT A CORONERS CASE. SPOKE TO ELIAS.
[2022-04-08 15:27] LABS: UREA NITROGEN, BLOOD 87 mg/dL (7-18)
--- NOTE | 2022-04-08 15:42 | NUR ---
CONTACTED [facility]. SPOKE TO RAFAT. REPORT OF REFERRAL NUMBER: [id number] [facility] WILL CALL BACK IN AN HOUR OF WHAT TRANSPIRED WITH THEM TRYING TO CALL [facility] TO CONTACT FAMILY MEMBER OR CONSERVATOR.
--- NOTE | 2022-04-08 15:52 | NUR ---
CONSERVATOR: ANGEL SHANKS [phone]
--- NOTE | 2022-04-08 15:54 | NUR ---
CALLED CONSERVATOR. NO ANSWER, LEFT VM.
--- NOTE | 2022-04-08 16:24 | NUR ---
CONTACTED CONSERVATOR ANGEL SHANKS. NO ANSWER. LEFT VM.
--- NOTE | 2022-04-08 16:29 | NUR ---
DR. GUTIERREZ WILL SIGN THE CERTIFICATE
--- NOTE | 2022-04-08 16:48 | NUR ---
POST-MORTEM CARE DONE AT BEDSIDE. PT HAS NO BELONGINGS
--- NOTE | 2022-04-08 16:49 | NUR ---
CALLED PT'S CONSERVATOR AGAIN, NO RESPONSE AT THIS TIME. AWAITING CALL BACK
== END ==
LOC: ER 13:30
DX: I46.9 Cardiac arrest, cause unspecified (principal); K56.600 Partial intestinal obstruction, unspecified as to cause; Z20.822 Contact with and (suspected) exposure to COVID-19; F20.9 Schizophrenia, unspecified; E11.9 Type 2 diabetes mellitus without complications; Z79.84 Long term (current) use of oral hypoglycemic drugs; Z79.899 Other long term (current) drug therapy; Z88.8 Allergy status to other drugs, medicaments and biological substances; Z91.014 Allergy to mammalian meats; K21.9 Gastro-esophageal reflux disease without esophagitis; I10 Essential (primary) hypertension
CPT/HCPCS: 99291; 92950; 74176; 31500; 71045; 87426; 85025; 80048; 87040; 83605; 83690; 80076; 93005; J2543; J7060; C9803